=== PATIENT | female | born 1990 | race Caucasian/White ===

== ENCOUNTER 2017-09-15 14:47 | Emergency (ER) ==
[2017-09-15 14:57] VITALS: TEMP 99; BMI 36.0
[2017-09-15] MEDS ORDERED: TORADOL IM STA (15:02)
--- NOTE | 2017-09-15 16:07 | CT ---
EXAM: CT abdomen pelvis without contrast HISTORY: Abdominal pain COMPARISON: None TECHNIQUE: Serial axial images of the abdomen pelvis were performed from the lung bases through the inferior pelvis without contrast. These were viewed in multiple planes. FINDINGS: The lung bases are clear. Evaluation is limited due to lack of contrast. The liver is unremarkable. The gallbladder demonstra junior internal debris/stones with a peripherally calcified stone in the gallbladder neck measuring 1.6 cm in diameter. There is minimal pericholecystic hazy ground-glass. The adrenal glands are unremarka ble. The kidneys are normal with no stones, hydronephrosis or hydroureter. The spleen demonstrates calcified granulomas. The pancreas is unremarkable. Stomach is mildly distended. Small bowel in the abdomen and pelvis is unremarkable. The colon is unremarkable. The uterus is nor mal. Urinary bladder is minimally distended. There is no free air, free fluid or lymphadenopathy. T he osseous structures are unremarkable. IMPRESSION: 1. The gallbladder is mildly contracted with a larger stone near the gallbladder neck. If further e valuation is clinically indicated, ultrasound is recommended. 2. Sequela of old granulomatous disease.
[2017-09-15] MEDS ORDERED: ROCEPHIN IM STA (16:47)
[2017-09-15] MEDS ORDERED: LIDOCAINE HCL 1% SDV SUBCUT STA (16:47)
--- NOTE | 2017-09-15 16:53 | ED.PDOC ---
General ED Provider: Dr. VISHAL ZHOU Chief Complaint: Back Pain Stated Complaint: back pain right flank Time Seen by Physician: 15:00 Mode of Arrival: Walk-In Information Source: Patient Exam Limitations: No limitations Nursing and Triage Documentation Reviewed and Agree: Yes Reviewed sepsis parameters & appropriate labs ordered?: Yes System Inflammatory Response Syndrome: Not Applicable Sepsis Protocol: For patient's 13 years and over: Temp is 96.8 and below OR 101 and greater Pulse >90 BPM Resp >20/minute Acutely Altered Mental Status Are patient's symptoms suggestive of a new infection, such as: -Pneumonia -Skin, Soft Tissue -Endocarditis -UTI -Bone, Joint Infection -Implantable Device -Acute Abdominal Infection -Wound Infection -Meningitis -Blood Stream Catheter Infection -Unknown Complaint Exam - Complaint/Exam Patient Complains of: Reports: Pain, Dysuria Onset/Duration: 2 hours sudden onset Symptoms Are: Still present Episodes of Voiding Over Last 12 Hours: 7 Initial Severity: Severe Current Severity: Mild Location of Pain: Reports: Right, Flank, Suprapubic Character: Reports: Sharp Aggravating: Reports: Movement, Urination Alleviating: Reports: Medications Associated Signs and Symptoms: Reports: Dysuria. Denies: Diaphoresis, Back pain , Fever, Hematuria, Constipation, Blood in stool, Rectal pain, Appetite change, Nausea, Vomiting, Decreased urine output, Increased urine frequency, Increased thirst, Decreased activity, Lethargy, Abdominal Pain, Bubble bath use, Vaginal bleeding, Vaginal discharge, Genital swelling, Genital blisters, Retained foreign body Related History: Reports: Similar episode (not as bad ) : 1 Para: 1 Hx Total # of Abortions (Spontaneous & Elective): 0 Ectopic Risk Factors: Reports: None Ovarian Torsion Risk Factors: Reports: None Surgical Obstruction Risk Factors: Reports: None RH Status: Unknown Related Surgical History: Reports: None Abdominal Findings: Present: None Review of Systems - Review Of Systems Constitutional: Reports: No symptoms Eyes: Reports: No symptoms Ears, Nose, Mouth, Throat: Reports: No symptoms Respiratory: Reports: No symptoms Cardiac: Reports: No symptoms GI: Reports: No symptoms : Reports: Dysuria, Flank pain (right) Musculoskeletal: Reports: No symptoms Skin: Reports: No symptoms Neurological: Reports: No symptoms Endocrine: Reports: No symptoms Hematologic/Lymphatic: Reports: No symptoms All Other Systems: Reviewed and Negative Past Medical History - Past Medical History Previously Healthy: Yes Endocrine: Reports: None Cardiovascular: Reports: Hypertension Respiratory: Reports: None Hematological: Reports: None Gastrointestinal: Reports: None Genitourinary: Reports: None Neuro/Psych: Reports: None Musculoskeletal: Reports: None Cancer: Reports: None Last Menstrual Period: 09/10/17 - Surgical History General Surgical History: Reports: None - Family History Family History: Reports: None - Social History Smoking Status: Current every day smoker, Heavy tobacco smoker Hx Substance Use: No Alcohol Screening: None - Immunizations Tetanus Shot up to Date: No Physical Exam - Physical Exam Appearance: Well-appearing, No pain distress, Well-nourished Eyes: LOPEZ, EOMI, Conjunctiva clear ENT: Ears normal, Nose normal, Oropharynx normal Respiratory: Airway patent, Breath sounds clear, Breath sounds equal, Respirations nonlabored Cardiovascular: RRR, Pulses normal, No rub, No murmur GI/: Soft, Nontender, No masses, Bowel sounds normal, No Organomegaly Musculoskeletal: Normal strength, ROM intact, No edema, No calf tenderness Skin: Warm, Dry, Normal color Neurological: Sensation intact, Motor intact, Reflexes intact, Cranial nerves intact, Alert, Oriented Psychiatric: Affect appropriate, Mood appropriate Critical Care Note - Critical Care Note Total Time (mins): 0 Course - Course Hematology/Chemistry: 09/15/17 15:05 09/15/17 15:05 Orders, Labs, Meds: Lab Review 09/15/17 09/15/17 09/15/17 15:05 15:05 15:05 WBC 19.33 H RBC 4.79 Hgb 15.1 Hct 43.4 MCV 90.6 MCH 31.5 H MCHC 34.8 RDW Coeff of Freya 11.9 Plt Count 222 Immature Gran % (Auto) 0.4 Neut % (Auto) 81.0 Lymph % (Auto) 12.7 Tama % (Auto) 4.8 Eos % (Auto) 0.8 Baso % (Auto) 0.3 Immature Gran # (Auto) 0.1 Neut # 15.7 H Lymph # 2.5 Tama # 0.9 Eos # 0.2 Baso # 0.1 Sodium 140 Potassium 3.9 Chloride 106 Carbon Dioxide 25 Anion Gap 12.9 BUN 8 Creatinine 0.77 Estimated GFR (MDRD) 92.00 BUN/Creatinine Ratio 10.38 Glucose 91 Calcium 9.7 Total Bilirubin 0.4 AST 13 L ALT 14 Alkaline Phosphatase 90 Total Protein 7.3 Albumin 3.8 Globulin 3.5 Albumin/Globulin Ratio 1.09 Urine Color Yellow Urine Clarity Cloudy Urine pH 5.5 Ur Specific [place] >=1.030 Urine Protein 3+ Urine Glucose (UA) Negative Urine Ketones Negative Urine Blood 2+ Urine Nitrite Negative Urine Bilirubin Negative Urine Urobilinogen 0.2 Ur Leukocyte Esterase 2+ Urine Microscopic RBC 10-20 Urine Microscopic WBC Tntc Ur Squamous Epith Cells 5-10 Urine Bacteria 2+ Urine Test 09/15/17 15:05 WBC RBC Hgb Hct MCV MCH MCHC RDW Coeff of Freya Plt Count Immature Gran % (Auto) Neut % (Auto) Lymph % (Auto) Tama % (Auto) Eos % (Auto) Baso % (Auto) Immature Gran # (Auto) Neut # Lymph # Tama # Eos # Baso # Sodium Potassium Chloride Carbon Dioxide Anion Gap BUN Creatinine Estimated GFR (MDRD) BUN/Creatinine Ratio Glucose Calcium Total Bilirubin AST ALT Alkaline Phosphatase Total Protein Albumin Globulin Albumin/Globulin Ratio Urine Color Urine Clarity Urine pH Ur Specific [place] Urine Protein Urine Glucose (UA) Urine Ketones Urine Blood Urine Nitrite Urine Bilirubin Urine Urobilinogen Ur Leukocyte Esterase Urine Microscopic RBC Urine Microscopic WBC Ur Squamous Epith Cells Urine Bacteria Urine Test Negative Orders Category Date Time Status CBC W/ AUTO DIFF Stat LAB 09/15/17 15:05 Completed COMPREHENSIVE METABOLIC PANEL Stat LAB 09/15/17 15:05 Completed URINALYSIS C & S IF INDICATED Stat LAB 09/15/17 15:05 Completed URINE CULTURE Stat LAB 09/15/17 15:05 Received URINE Stat LAB 09/15/17 15:05 Completed Ceftriaxone Sodium [Rocephin] MEDS 09/15/17 16:47 Stat 1 gm IM ONCE STA Ketorolac Tromethamine [Toradol] MEDS 09/15/17 15:02 Discontinued 60 mg IM ONCE STA Lidocaine HCl/Pf [Lidocaine HCl 1% Sdv] MEDS 09/15/17 16:47 Stat 5 ml SUBCUT ONCE STA CT ABD/PEL WO RENAL STONE PROT Stat RADS 09/15/17 15:02 Completed Medications Discontinued Medications Generic Name Dose Route Start Last Admin Trade Name Freq PRN Reason Stop Dose Admin Ceftriaxone Sodium 1 gm 09/15/17 16:47 Rocephin IM 09/15/17 16:48 ONCE STA Ketorolac Tromethamine 60 mg 09/15/17 15:02 09/15/17 15:19 Toradol IM 09/15/17 15:03 60 mg ONCE STA Administration Lidocaine HCl 5 ml 09/15/17 16:47 Lidocaine Hcl 1% Sdv SUBCUT 09/15/17 16:48 ONCE STA Vital Signs: Temp Pulse Resp BP Pulse Ox 09/15/17 14:49 99.0 F 116 H 20 167/111 H 99 Departure - Departure Time of Disposition: 16:55 (discussed with pt, fever , abdominal pain, vomiting means extesion of infection) Disposition: HOME SELF-CARE Discharge Problem: Backache UTI (urinary tract infection) Qualifiers: Urinary tract infection type: site unspecified Hematuria presence: with hematuria Qualified Code(s): N39.0 - Urinary tract infection, site not specified ; R31.9 - Hematuria, unspecified; R31.9 - Hematuria, unspecified Instructions: Urinary Tract Infection in Women (ED) Condition: Good Pt referred to PMD for follow-up: Yes Additional Instructions: Please call your Family Physician as soon as possible to schedule a follow-up appointment. Prescriptions: Hydrocodone/Acetaminophen [[place] 10-325 Tablet] 1 each PO Q8HR #10 tablet Allergies/Adverse Reactions: Allergies No Known Allergies Allergy (Unverified 09/15/17 14:52) Home Medications: Ambulatory Orders Hydrocodone/Acetaminophen [[place] 10-325 Tablet] 1 each PO Q8HR #10 tablet Lisinopril 10 mg PO DAILY 09/15/17
[2017-09-15] MEDS ORDERED: ZESTRIL PO STA (17:01)
[2017-09-15 17:42] VITALS: BP 152/107
== END 2017-09-15 17:44 | disposition home or self-care (01) ==
LOC: ED 14:47
DX: N39.0 Urinary tract infection, site not specified (principal); R31.9 Hematuria, unspecified; M54.9 Dorsalgia, unspecified; F17.210 Nicotine dependence, cigarettes, uncomplicated
CPT/HCPCS: 36415; 74176; 80053; 81001; 81025; 85025; 87086; 96372; 99283